=== PATIENT | female | born 1945 | race Caucasian/White ===

== ENCOUNTER 2019-06-21 03:39 | Emergency (ER) | payer MEDICARE, BC ==
--- NOTE | 2019-06-21 13:45 | EDM.PDOC ---
ED HPI GENERAL MEDICAL PROBLEM - General Chief Complaint: Cardiovascular Problem Stated Complaint: IRREGULAR HEART RATE INCREASED BP Time Seen by Provider: 06/21/19 04:30 Source of Information: Reports: Patient, Significant Other History Limitations: Reports: No Limitations - History of Present Illness INITIAL COMMENTS - FREE TEXT/NARRATIVE: Patient is a 74 yo white female with history of PSVT who present with feeling of irregular heart beats. Differnt then PSVT feelings. Stats her heart seemt to skip a beat. No chest pain or diaphoresis, No SOB . Pateint denies any usual PSVT triggers such as caffiene or chocolate Onset: Today Onset Date: 06/21/19 Onset Time: 02:00 Duration: Hour(s): (3 days) - Related Data Allergies Allergy/AdvReac Type Severity Reaction Status Date / Time amoxicillin [Amoxicillin] Allergy Hives Verified 06/30/13 09:49 metronidazole Allergy Rash Verified 06/30/13 09:49 Home Meds: Home Meds C/Sourcherry/Celery/Grape Seed [[place]] 1 cap 06/30/13 [History] Calcium Carbonate [Tums] 500 mg 06/30/13 [History] Cranberry 1 cap 06/30/13 [History] Garlic 1 cap 06/30/13 [History] Lactobacillus Acidophilus [Acidophilus] 1 each PO 06/30/13 [History] Magnesium Citrate 100 mg 06/30/13 [History] Metoprolol Succinate 25 mg PO 06/30/13 [History] Multivitamin [Multi-Vitamin Daily] 1 cap 06/30/13 [History] Naproxen Sodium [Aleve] 220 mg PO 06/30/13 [History] Sertraline [Zoloft] 25 mg PO DAILY 06/30/13 [History] Simvastatin [Zocor] 20 mg 06/30/13 [History] Ubidecarenone [Co Q-10] 1 cap 06/30/13 [History] Vitamin E Acetate [Vitamin E] 200 mg 06/30/13 [History] timoloL maleate [Timoptic 0.5% Ocudose] 1 drop 06/30/13 [History] Social & Family History - Tobacco Use Smoking Status *Q: Never Smoker ED ROS GENERAL - Review of Systems Review Of Systems: See Below Constitutional: Reports: No Symptoms Respiratory: Reports: No Symptoms Cardiovascular: Reports: No Symptoms GI/Abdominal: Reports: No Symptoms : Reports: No Symptoms Skin: Reports: No Symptoms ED EXAM, GENERAL - Physical Exam Exam: See Below Exam Limited By: No Limitations General Appearance: Alert, No Apparent Distress Nose: Normal Inspection, Normal Mucosa, No Blood Throat/Mouth: Normal Inspection, Normal Oropharynx, Normal Voice, No Airway Compromise Head: Atraumatic, Normocephalic Neck: Normal Inspection, Supple, Non-Tender, Full Range of Motion Respiratory/Chest: No Respiratory Distress, Lungs Clear, Normal Breath Sounds, Chest Non-Tender Cardiovascular: No: Regular Rate, Rhythm (Regular rhythm with occassioanl irregular beats. PAC's on monitor and EKG ) GI/Abdominal: Soft, Non-Tender Back Exam: Normal Inspection, Full Range of Motion Extremities: Normal Inspection, Normal Range of Motion, Non-Tender Neurological: Oriented, Normal Cognition Psychiatric: Normal Affect, Normal Mood Skin Exam: Warm, Dry Lymphatic: No Adenopathy EKG INTERPRETATION EKG Date: 06/21/19 Time: 05:00 Rhythm: Other (Sinus rhythm with occassional PVC's) Course - Vital Signs Text/Narrative:: Patient reassured that this rhythm is benign . No treatment required. Follow up in 3-4 days in clinic Last Recorded V/S: Last Vital Signs Temp 97.4 F 06/21/19 05:08 Pulse 63 06/21/19 05:08 Resp 18 06/21/19 05:08 BP 146/65 H 06/21/19 05:08 Pulse Ox 99 06/21/19 05:08 - Orders/Labs/Meds Orders: Active Orders 24 hr Category Date Time Status Cardiac Monitoring [RC] .As Directed Care 06/21/19 05:13 Active Labs: Laboratory Tests 06/21/19 06/21/19 06/21/19 Range/Units 06:00 06:00 06:00 WBC 5.7 D (4.0-11.0) K/uL RBC 4.43 (3.80-5.80) M/uL Hgb 13.9 (11.5-16.5) g/dL Hct 41.7 (37.0-47.0) % MCV 94 (76-96) fL MCH 31.4 (27.0-32.0) pg MCHC 33.3 (31.0-35.0) g/dL RDW 13.8 (11.0-16.0) % Plt Count 160 (150-500) K/uL MPV 9.4 (6.0-10.0) fL Neut % (Auto) 67.9 (45.0-70.0) % Lymph % (Auto) 22.0 (20.0-40.0) % [place] % (Auto) 7.5 (3.0-10.0) % Eos % (Auto) 2.3 (1.0-5.0) % Baso % (Auto) 0.3 (0.0-0.5) % Neut # (Auto) 3.88 (2.00-7.50) K/uL Lymph # (Auto) 1.26 L (1.50-4.00) K/uL [place] # (Auto) 0.43 (0.20-0.80) K/uL Eos # (Auto) 0.13 (0.04-0.40) K/uL Baso # (Auto) 0.02 (0.02-0.10) K/uL Sodium 141 (136-145) mmol/L Potassium 4.1 (3.5-5.1) mmol/L Chloride 106 (98-107) mmol/L Carbon Dioxide 25.7 (21.0-32.0) mmol/L Anion Gap 13.4 (5.0-15.0) mmol/L BUN 23 (8-26) mg/dL Creatinine 0.64 (0.55-1.02) mg/dL Est Cr Clr Drug Dosing TNP Estimated GFR (MDRD) > 60 (>60) MLS/MIN BUN/Creatinine Ratio 35.9 H (6-25) Glucose 104 H (74-100) mg/dL Calcium 8.6 (8.5-10.1) mg/dL Magnesium 2.1 (1.8-2.4) mg/dL Total Bilirubin 0.3 (0.0-1.0) mg/dL AST 28 (15-37) U/L ALT 37 (12-78) U/L Alkaline Phosphatase 51 (46-116) U/L Troponin I < 0.017 (0.000-0.060) ng/mL Total Protein 7.1 (6.4-8.2) g/dL Albumin 3.8 (3.4-5.0) g/dL Globulin 3.3 (2.2-4.2) g/dL Albumin/Globulin Ratio 1.2 (0.8-2.0) Departure - Departure Time of Disposition: 08:00 Disposition: Home, Self-Care 01 Condition: Good Clinical Impression: PAC (premature atrial contraction) Instructions: Premature Atrial Contraction Referrals: PCP,None [Primary Care Provider] - Forms: ED Department Discharge Additional Instructions: Follow up with Dr Almonte, and your Dance Coach in the next few days. return if develop chest pain or other cardiac concerns Sepsis Event Note - Evaluation Sepsis Screening Result: No Definite Risk - Focused Exam Vital Signs: Vital Signs Temp Pulse Resp BP Pulse Ox 06/21/19 05:08 97.4 F 63 18 146/65 H 99 Date Exam was Performed: 06/21/19 Time Exam was Performed: 14:02 - Problem List Review Problem List Initiated/Reviewed/Updated: Yes - My Orders Last 24 Hours: My Active Orders 06/21/19 05:13 Cardiac Monitoring [RC] .As Directed - Assessment/Plan Last 24 Hours: My Active Orders 06/21/19 05:13 Cardiac Monitoring [RC] .As Directed Assessment:: Diagnosis Sinus rhythm with PAC's Reassurance follow up with DR. Almonte next week Plan Follow up with Dr. Almonte next week
== END 2019-06-21 06:51 | disposition home or self-care (01) ==
LOC: LB.ED 03:39
DX: I49.1 Atrial premature depolarization (principal); Z88.1 Allergy status to other antibiotic agents; Z88.8 Allergy status to other drugs, medicaments and biological substances; Z79.899 Other long term (current) drug therapy
CPT/HCPCS: 36415; 80053; 83735; 84484; 85025; 93005; 99283; 99285-25

== ENCOUNTER 2023-10-21 12:05 | Emergency (ER) | payer MEDICARE, BC ==
[2023-10-21] MEDS: Acetaminophen 500 MG Tab PO ONE (13:02)
[2023-10-23] MEDS: Acetaminophen 500 MG Tab ONE (10:18)
== END 2023-10-21 14:40 | disposition home or self-care (01) ==
LOC: LB.ED 12:05
DX: S52.614A Nondisplaced fracture of right ulna styloid process, initial encounter for closed fracture (principal); S52.501A Unspecified fracture of the lower end of right radius, initial encounter for closed fracture; I10 Essential (primary) hypertension; E78.00 Pure hypercholesterolemia, unspecified; Z79.899 Other long term (current) drug therapy; Z88.0 Allergy status to penicillin; Z88.8 Allergy status to other drugs, medicaments and biological substances; W18.30XA Fall on same level, unspecified, initial encounter; Y93.H2 Activity, gardening and landscaping; Y92.017 Garden or yard in single-family (private) house as the place of occurrence of the external cause
CPT/HCPCS: 29125; 71250; 73110; 99284; A9270

== ENCOUNTER 2025-01-14 14:22 | Emergency (ER) | payer MEDICARE, BC ==
[2025-01-14 15:33] LABS: BASOPHILS ABSOLUTE AUTO 0.02 K/uL (0.02-0.10); BASOPHILS PERCENT AUTO 0.5 % (0.0-0.5); EOSINOPHILS ABSOLUTE AUTO 0.12 K/uL (0.04-0.40); EOSINOPHILS PERCENT AUTO 3.0 % (1.0-5.0); LYMPHOCYTES ABSOLUTE AUTO 1.35 K/uL (1.50-4.00); LYMPHOCYTES PERCENT AUTO 33.3 % (20.0-40.0); MEAN PLATELET VOLUME 8.7 fL (6.0-10.0); MONOCYTES ABSOLUTE AUTO 0.29 K/uL (0.20-0.80); MONOCYTES PERCENT AUTO 7.2 % (3.0-10.0); NEUTROPHILS ABSOLUTE AUTO 2.27 K/uL (2.00-7.50); NEUTROPHILS PERCENT AUTO 56.0 % (45.0-70.0); PLATELET COUNT,PLT 132 K/uL (150-500); RED BLOOD CELL COUNT 4.22 M/uL (3.80-5.80); RED CELL DISTRIBUTION WIDTH 13.8 % (11.0-16.0); WHITE BLOOD CELL COUNT,WBC 4.1 K/uL (4.0-11.0)
[2025-01-14 15:43] LABS: APPEARANCE,URINE CLEAR (CLEAR); GLUCOSE,URINE NEGATIVE (NEGATIVE); OCCULT BLOOD,URINE NEGATIVE (NEGATIVE)
[2025-01-14 16:01] LABS: A/G RATIO 1.1 (0.8-2.0); ALANINE AMINOTRANSFERASE,ALT 40.0 U/L (12-78); ASPARTATE AMNIOTRANSFERASE,AST 23.0 U/L (15-37); BILIRUBIN TOTAL 0.2 mg/dL (0.0-1.0); BLOOD UREA NITROGEN,BUN 27.0 mg/dL (8-26); CARBON DIOXIDE,CO2 27.7 mmol/L (21.0-32.0); CHLORIDE,CL 105.0 mmol/L (98-107); CREATININE 1.04 mg/dL (0.55-1.02); EST CRCL DRUG DOSING (CG) 37.47 mL/min; ESTIMATED GFR 55.0 mL/min (>60); GLUCOSE RANDOM 90.0 mg/dL (74-100); POTASSIUM,K 4.7 mmol/L (3.5-5.1); PROTEIN TOTAL,TP 6.8 g/dL (6.4-8.2); SODIUM,NA 141.0 mmol/L (136-145); TSH ULTRASENSITIVE 1.383 uIU/mL (0.358-3.740)
== END 2025-01-14 18:32 | disposition home or self-care (01) ==
LOC: LB.ED 14:22
DX: E86.0 Dehydration (principal); E78.00 Pure hypercholesterolemia, unspecified; Z79.899 Other long term (current) drug therapy; Z88.1 Allergy status to other antibiotic agents; Z88.8 Allergy status to other drugs, medicaments and biological substances
CPT/HCPCS: 36415; 80053; 81003; 84443; 85025; 93005; 96360; 96361; 99285; J7030